=== PATIENT | male | born 2000 | race African-American/Black ===

== ENCOUNTER 2020-01-13 03:10 | Emergency (ER) | payer OTHER ==
[2020-01-13 03:18] VITALS: BP 147/85
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
== END 2020-01-13 06:30 | disposition home or self-care (01) ==
LOC: ER 03:10
DX: S01.21XA Laceration without foreign body of nose, initial encounter (principal); Y04.2XXA Assault by strike against or bumped into by another person, initial encounter; Y92.009 Unspecified place in unspecified non-institutional (private) residence as the place of occurrence of the external cause
CPT/HCPCS: 99283